=== PATIENT | female | born 1995 | race Caucasian/White ===

== ENCOUNTER 2016-10-02 11:08 | Emergency (ER) | payer OTHER | END 2016-10-02 12:22 | disposition home or self-care (01) | LOC: FER 11:08 | DX: T83.590A Infection and inflammatory reaction due to implanted urinary neurostimulation device, initial encounter (principal); B95.62 Methicillin resistant Staphylococcus aureus infection as the cause of diseases classified elsewhere; F17.210 Nicotine dependence, cigarettes, uncomplicated; Z88.6 Allergy status to analgesic agent; Y83.8 Other surgical procedures as the cause of abnormal reaction of the patient, or of later complication, without mention of misadventure at the time of the procedure | CPT/HCPCS: 86403; 87070; 87077; 87088; 87186; 87205 ==

== ENCOUNTER → 2021-04-28 | Day surgery (SDC) | payer OTHER ==
[~2021-04-28] VITALS: Ht 160 cm; Wt 49.9 kg
[~2021-04-28] MED LIST: PERCOCET 5-3251 EACH PO; SUBOXONE 8 MG-1 EACH PO
[2021-04-28 08:10] LABS: HCG (URINE) SCREEN NEGATIVE (NEGATIVE)
[2021-04-28 08:32] LABS: HCT 39.6 % (37.0-47.0); MCH 29.1 pg (25.0-31.0); MCHC 32.8 g/dL (32.0-36.0); MCV 88.8 fL (78.0-100.0); MPV 10.8 fL (6.0-9.5); RBC 4.46 M/uL (4.20-5.40); RDW 12.1 % (11.5-14.0); WBC 4.9 K/uL (4.0-10.5)
== END | disposition home or self-care (01) ==
LOC: FAS 07:51
PROVIDERS: Obstetrics & Gynecology
DX: N75.0 Cyst of Bartholin's gland (principal); D64.9 Anemia, unspecified; F41.9 Anxiety disorder, unspecified; F31.9 Bipolar disorder, unspecified; K21.9 Gastro-esophageal reflux disease without esophagitis; F17.210 Nicotine dependence, cigarettes, uncomplicated; Z88.8 Allergy status to other drugs, medicaments and biological substances; Z79.899 Other long term (current) drug therapy
CPT/HCPCS: 36415; 84703; 86850; 86900; 86901; J1100; J1170; J2250; J2405; J2704; J7120